=== PATIENT | female | born 1975 | race Two or more races ===

== ENCOUNTER 2017-01-07 13:55 | Emergency (ER) | payer BC ==
[2017-01-07 14:09] VITALS: BP 134/73
--- NOTE | 2017-01-07 16:34 | UC ---
Skin Complaint HPI - HPI Summary HPI Summary: Left MAL just below bra line pat has a tender erythemic abscess for 5 days - History of Current Complaint Chief Complaint: UCSkin Time Seen by Provider: 01/07/17 16:27 Stated Complaint: LUMP UNDER ARM Hx Obtained From: Patient Hx Last Menstrual Period: 12/31/16 ?: No Onset/Duration: Sudden Onset, Lasting Days - 5, Still Present Timing: Constant Onset Severity: Mild Current Severity: Moderate Pain Intensity: 3 Location: Discrete Character: Pain, Redness, Raised Aggravating: Nothing Alleviating: Nothing Associated Signs & Symptoms: Positive: Negative - Allergy/Home Medications Allergies/Adverse Reactions: Allergies Allergy/AdvReac Type Severity Reaction Status Date / Time No Known Allergies Allergy Verified 05/09/12 11:13 Review of Systems Constitutional: Negative Skin: Other - Abscess MAL left side of chest wall Eyes: Negative ENT: Negative Respiratory: Negative Cardiovascular: Negative Gastrointestinal: Negative Genitourinary: Negative Motor: Negative Neurovascular: Negative Musculoskeletal: Negative Neurological: Negative Psychological: Negative All Other Systems Reviewed And Are Negative: Yes PMH/Surg Hx/FS Hx/Imm Hx Previously Healthy: Yes - Surgical History Surgical History: None - Family History Known Family History: Positive: Unknown - Social History Occupation: Unemployed Lives: With Family Alcohol Use: None Substance Use Type: None Smoking Status (MU): Former Smoker Physical Exam Triage Information Reviewed: Yes Appearance: Well-Appearing, No Pain Distress, Well-Nourished Vital Signs: Initial Vital Signs Temp 98.6 F 01/07/17 14:05 Pulse 70 01/07/17 14:05 Resp 17 01/07/17 14:05 BP 134/73 01/07/17 14:05 Pulse Ox 99 01/07/17 14:05 Vital Signs Reviewed: Yes Eye Exam: Normal Eyes: Positive: Conjunctiva Clear ENT Exam: Normal ENT: Positive: Normal ENT inspection, Hearing grossly normal. Negative: Nasal congestion, Nasal drainage, Trismus, Muffled/hoarse voice Dental Exam: Normal Neck exam: Normal Neck: Positive: Supple, Nontender, No Lymphadenopathy Respiratory Exam: Normal Respiratory: Positive: Chest non-tender, No respiratory distress, No accessory muscle use Cardiovascular Exam: Normal Cardiovascular: Positive: RRR, Pulses Normal, Brisk Capillary Refill Musculoskeletal Exam: Normal Musculoskeletal: Positive: Strength Intact, ROM Intact Neurological Exam: Normal Neurological: Positive: Alert Psychological Exam: Normal Skin: Positive: Other - Abscess2.5 x1 cm---firm no fluctulance Course/Dx - Course Course Of Treatment: warm compress,bactrim retun when abscess softens for I&D, follow with pcp - Differential Diagnoses - Skin Complaint Differential Diagnoses: Abscess, Cellulitis, Impetigo, Lymphadenitis, Tick Born Illness - Diagnoses Provider Diagnoses: Abscess MAL Left chest wall Discharge - Discharge Plan Condition: Stable Disposition: HOME Prescriptions: Sulfamethox/Trimethoprim DS* [Bactrim DS 800/160 TAB*] 1 tab PO BID #20 tab Patient Education Materials: Abscess (ED), Heat Pack Application (ED), Sulfamethoxazole/Trimethoprim (By mouth) Referrals: [facility] [place] [facility] [Outside] - 5 Days
== END 2017-01-07 16:46 | disposition home or self-care (01) ==
LOC: UCEAST 13:55
DX: L02.213 Cutaneous abscess of chest wall (principal)
CPT/HCPCS: 99212; G0463

== ENCOUNTER 2017-04-11 12:58 | Emergency (ER) | payer BC ==
[2017-04-11] MEDS ORDERED: Ketorolac INJ* 60 MG/2 ML VIAL IM ONE (17:07)
[2017-04-11] MEDS ORDERED: Cyclobenzaprine TAB* 10 MG PO ONE (17:08)
[2017-04-11] MEDS ORDERED: Dexamethasone TAB* 4 MG PO ONE (17:08)
[2017-04-11] MEDS ORDERED: oxyCODONE/Acetamin 5/325 MG* TAB PO ONE (17:22)
--- NOTE | 2017-04-11 17:22 | ED ---
Back Pain - HPI Summary HPI Summary: 41F presents with back spasms for two weeks. She denies any injury. She has a history of such. She denies any fever. She denies any loss of bowel or bladder. She denies any saddle anaesthesia. She denies any pain down leg. She is able to ambulate normally. She tried ibuprofen without relief. She denies any numbness or tingling. - History of Current Complaint Chief Complaint: EDBackInjuryPain Stated Complaint: LOWER BACK PAIN Time Seen by Provider: 04/11/17 16:53 Hx Last Menstrual Period: 12/31/16 Pain Intensity: 7 - Allergies/Home Medications Allergies/Adverse Reactions: Allergies Allergy/AdvReac Type Severity Reaction Status Date / Time No Known Allergies Allergy Verified 05/09/12 11:13 PMH/Surg Hx/FS Hx/Imm Hx Cardiovascular History: Denies: Hx Aneurysm, Hx Angina, Hx Angioplasty, Hx Atrial Fibrillation, Hx Auto Implanted Cardiovert Defib, Hx Cardiac Arrest, Hx Cardiomegaly, Hx Congenital Heart Disease, Hx Congestive Heart Failure, Hx Coronary Artery Disease, Hx Deep Vein Thrombosis, Hx Embolism, Hx Hypercholesterolemia, Hx Hypotension, Hx Hypertension, Hx Myocardial Infarction, Hx Pacemaker/ICD, Hx Peripheral Vascular Disease, Hx Rheumatic Fever, Hx Syncope, Hx Valvular Heart Disease, Other Cardiovascular Problems/Disorders Respiratory History: Denies: Hx Asthma, Hx Bronchopulmonary Dysplasia, Hx Chronic Bronchitis, Hx Chronic Obstructive Pulmonary Disease (COPD), Hx Cystic Fibrosis, Hx Lung Cancer , Hx Pleural Effusion, Hx Pneumonia, Hx Pulmonary Edema, Hx Pulmonary Embolism, Hx Seasonal Allergies, Hx Sleep Apnea, Other Respiratory Problems/Disorders GI History: Denies: Hx Cirrhosis, Hx Crohn's Disease, Hx Diverticulosis, Hx Gall Bladder Disease, Hx Gastroesophageal Reflux Disease, Hx Gastrointestinal Bleed, Hx Hiatal Hernia, Hx Irritable Bowel, Hx Jaundice, Hx Obstructive Bowel, Hx Ileostomy, Hx Pyloric Stenosis, Hx Ulcer, Hx Urosepsis, Other GI Disorders Neurological History: Denies: Hx CVA, Hx Dementia, Hx Developmental Delay, Hx Headaches, Hx Migraine, Hx Nerve Disease, Hx Peripheral Neuropathy, Hx Seizures, Hx Spinal Cord Injury, Hx Transient Ischemic Attacks (TIA), Other Neuro Impairments/ Disorders Psychiatric History: Denies: Hx Anxiety, Hx Attention Deficit Hyperactivity Disorder, Hx Autism, Hx Eating Disorder, Hx Oppositional Transfer Disorder, Hx Depression, Hx Panic Disorder, Hx Post Traumatic Stress Disorder, Hx Inpatient Treatment, Hx Community Mental Health Tx, Hx Schizophrenia, Hx Bipolar Disorder, Hx Suicide Attempt, Hx of Violent Episodes Against Others, Hx Substance Abuse, Other Psychiatric Issues/Disorders Infectious Disease History: No Infectious Disease History: Denies: Hx Clostridium Difficile, Hx Hepatitis, Hx Human Immunodeficiency Virus (HIV), Hx of Known/Suspected MRSA, Hx Shingles, Hx Tuberculosis, Hx Known/ Suspected VRE, Hx Known/Suspected VRSA, History Other Infectious Disease, Traveled Outside the [place] in Last 30 Days - Family History Known Family History: Positive: Unknown - Social History Alcohol Use: None Substance Use Type: Reports: None Smoking Status (MU): Former Smoker Review of Systems Negative: Fever Negative: Chest Pain Negative: Shortness Of Breath Positive: Myalgia - back pain All Other Systems Reviewed And Are Negative: Yes Physical Exam Triage Information Reviewed: Yes Vital Signs On Initial Exam: Initial Vitals Temp Pulse Resp BP Pulse Ox 97.8 F 55 20 135/30 100 04/11/17 13:01 04/11/17 13:01 04/11/17 13:01 04/11/17 13:01 04/11/17 13:01 Vital Signs Reviewed: Yes Appearance: Positive: Well-Appearing Skin: Positive: Warm, Dry Head/Face: Positive: Normal Head/Face Inspection Eyes: Positive: Normal, Conjunctiva Clear Respiratory/Lung Sounds: Positive: Clear to Auscultation, Breath Sounds Present Cardiovascular: Positive: Normal, RRR Musculoskeletal: Positive: Strength/ROM Intact - back, Other - no midline tenderness. tender across lower back. neg SLR, good pulses, Neurological: Positive: Reflexes Intact - patella Psychiatric: Positive: Normal - [place] Coma Scale Coma Scale Total: 15 Diagnostics - Vital Signs Vital Signs Temp Pulse Resp BP Pulse Ox 04/11/17 15:25 98.3 F 71 26 136/63 100 04/11/17 13:01 97.8 F 55 20 135/30 100 - Laboratory Lab Statement: Any lab studies that have been ordered have been reviewed, and results considered in the medical decision making process. Back Pain Course/Dx - Course Course Of Treatment: 41F presents with back spasms for two weeks. She denies any injury. She has a history of such. She denies any fever. She denies any loss of bowel or bladder. She denies any saddle anaesthesia. She denies any pain down leg. She is able to ambulate normally. She tried ibuprofen without relief. She denies any numbness or tingling. on exam tender across lower back. no midline tenderness. neg SLR. will treat with flexeril and steriod. patient understand and agrees with plan. - Diagnoses Differential Diagnosis/HQI/PQRI: Positive: Herniated Disc, Strain, Sprain Provider Diagnoses: Back pain Discharge - Discharge Plan Condition: Good Disposition: HOME Prescriptions: Cyclobenzaprine TAB* [Flexeril 10 MG TAB*] 10 mg PO TID PRN #15 tab PRN Reason: Pain Methylprednisolone [Medrol Dosepak 4 MG*] 4 mg PO .SEE DEONTE INSTRUCTION #1 packet Patient Education Materials: Back Pain (ED) Referrals: No Primary Care Phys,NOPCP [Primary Care Provider] - [facility] [place] [facility] [place]] Additional Instructions: Follow directions on package for Medrol pack Take muscle relaxers three times a day Use ibuprofen or Tylenol for pain every 6 hours ice/heat area, move as much as possible Follow up with primary within 5 days Return to ED if develop any new or worsening symptoms
[2017-04-11 17:35] VITALS: BP 129/74
== END 2017-04-11 17:36 | disposition home or self-care (01) ==
LOC: ED 12:58
DX: M54.9 Dorsalgia, unspecified (principal)
CPT/HCPCS: 99282; A9270-GY; J1885; J8540

== ENCOUNTER 2017-11-17 10:43 | Emergency (ER) | payer BC ==
[2017-11-17 10:53] VITALS: BP 116/58
== END 2017-11-17 11:54 | disposition left against medical advice (07) ==
LOC: UCEAST 10:43
DX: R22.2 Localized swelling, mass and lump, trunk (principal); Z53.21 Procedure and treatment not carried out due to patient leaving prior to being seen by health care provider

== ENCOUNTER 2017-11-17 13:46 | Emergency (ER) | payer BC ==
[2017-11-17 14:13] VITALS: BP 132/80
--- NOTE | 2017-11-17 14:24 | UC ---
Skin Complaint HPI - HPI Summary HPI Summary: patient has an abscess on the left side of her labia, the cyst began draining a few days ago but still has a firmpea size lump--no fevers or streaking continues with small amount of purulent drainage - History of Current Complaint Chief Complaint: UCSkin Time Seen by Provider: 11/17/17 14:15 Stated Complaint: PERSONAL Hx Obtained From: Patient Hx Last Menstrual Period: 10/19/17 ?: No Onset/Duration: Sudden Onset, Still Present Pain Intensity: 10 Pain Scale Used: 0-10 Numeric Location: Discrete Character: Redness, Raised, Painful Aggravating Factor(s): Nothing Alleviating Factor(s): Nothing Associated Signs & Symptoms: Positive: Negative - Allergy/Home Medications Allergies/Adverse Reactions: Allergies Allergy/AdvReac Type Severity Reaction Status Date / Time No Known Allergies Allergy Verified 11/17/17 10:53 Review of Systems Constitutional: Negative Skin: Other - left labial abscess, painful and draining Eyes: Negative ENT: Negative Respiratory: Negative Cardiovascular: Negative Gastrointestinal: Negative Genitourinary: Negative Motor: Negative Neurovascular: Negative Musculoskeletal: Negative Neurological: Negative Psychological: Negative Is Patient Immunocompromised?: No All Other Systems Reviewed And Are Negative: Yes PMH/Surg Hx/FS Hx/Imm Hx Previously Healthy: Yes - Surgical History Surgical History: None Surgery Procedure, Year, and Place: tubal ligation - Family History Known Family History: Positive: Unknown - Social History Occupation: Employed Full-time Lives: With Family Alcohol Use: None Substance Use Type: None Smoking Status (MU): Former Smoker Physical Exam Triage Information Reviewed: Yes Appearance: Well-Appearing, No Pain Distress, Well-Nourished Vital Signs: Initial Vital Signs Temp 97.8 F 11/17/17 14:09 Pulse 80 11/17/17 14:09 Resp 18 11/17/17 14:09 BP 132/80 11/17/17 14:09 Pulse Ox 98 11/17/17 14:09 Vital Signs Reviewed: Yes Eye Exam: Normal Eyes: Positive: Conjunctiva Clear ENT Exam: Normal ENT: Positive: Normal ENT inspection, Hearing grossly normal. Negative: Trismus , Muffled voice, Hoarse voice Dental Exam: Normal Neck exam: Normal Neck: Positive: Supple, Nontender Respiratory Exam: Normal Respiratory: Positive: Chest non-tender, No respiratory distress, No accessory muscle use Cardiovascular Exam: Normal Cardiovascular: Positive: RRR, Pulses Normal, Brisk Capillary Refill Musculoskeletal Exam: Normal Musculoskeletal: Positive: Strength Intact, ROM Intact, No Edema Neurological Exam: Normal Neurological: Positive: Alert, Muscle Tone Normal Psychological Exam: Normal Skin Exam: Other Skin: Positive: Other - draining labial abscess approx 5 mm of firm abscess remains Course/Dx - Course Course Of Treatment: wound culture obtained, warm compress, Bactrim follow with pcp prn - Diagnoses Provider Diagnoses: left labial abscess Discharge - Sign-Out/Discharge Documenting (check all that apply): Discharge/Admit/Transfer - Discharge Plan Condition: Stable Disposition: HOME Prescriptions: Sulfamethox/Trimethoprim DS* [Bactrim DS 800/160 TAB*] 1 tab PO BID #20 tab Patient Education Materials: Abscess (ED), Warm Compress or Soak (ED) Referrals: [facility] [place] [facility] [Outside] - 5 Days - Billing Disposition and Condition Condition: STABLE Disposition: Home
--- NOTE | 2017-11-20 19:51 | UC ---
- Progress Note Progress Note: 11/20/2017 Genital culture : normal jessi No change Nikole Noriega PA-C Discharge - Sign-Out/Discharge Documenting (check all that apply): Discharge/Admit/Transfer - D/c home - Discharge Plan Condition: Stable Disposition: HOME Prescriptions: Sulfamethox/Trimethoprim DS* [Bactrim DS 800/160 TAB*] 1 tab PO BID #20 tab Patient Education Materials: Abscess (ED), Warm Compress or Soak (ED) Referrals: [facility] [place] [facility] [Outside] - 5 Days - Billing Disposition and Condition Condition: STABLE Disposition: Home
== END 2017-11-17 14:40 | disposition home or self-care (01) ==
LOC: UCEAST 13:46
DX: N76.4 Abscess of vulva (principal); Z87.891 Personal history of nicotine dependence
CPT/HCPCS: 87070; 87077; 99212; G0463

== ENCOUNTER 2019-03-29 15:23 | Emergency (ER) | payer BC ==
--- NOTE | 2019-03-29 16:04 | ED ---
Throat Pain/Nasal Congestion - HPI Summary HPI Summary: Pt is a 43 y/o F presenting to the ED for left ear pain that began 2 weeks ago and has worsened since initial onset. Pt states that the ear feels wet and the pain radiates to the left side of the head. Pt states she hears a popping sound that comes and goes and describes the pain as pressure. About 4 days ago, pt saw blood on a cotton swab while cleaning her ear. Pt denies fever, sore throat, cough, rhinorrhea, vomiting, nausea, or diarrhea. Pt states that she placed ear drops in her ear after which pt felt a burning sensation in her ear. Pt denies a PMHx of DM or HTN. Pt admits a PSHx of tubal ligation. Pt denies alcohol, tobacco, or drug use. Pt takes allergy medications daily. Pts PCP is Dr. Valero. Pt is a salon receptionist. - History of Current Complaint Chief Complaint: EDEarPain Time Seen by Provider: 03/29/19 15:59 Hx Obtained From: Patient Onset/Duration: Sudden Onset, Lasting Weeks - 2 weeks, Still Present Severity: Moderate Associated Signs And Symptoms: Positive: Negative Cough: None - Allergies/Home Medications Allergies/Adverse Reactions: Allergies Allergy/AdvReac Type Severity Reaction Status Date / Time No Known Allergies Allergy Verified 03/29/19 15:28 PMH/Surg Hx/FS Hx/Imm Hx Previously Healthy: Yes Cardiovascular History: Denies: Hx Aneurysm, Hx Angina, Hx Angioplasty, Hx Atrial Fibrillation, Hx Auto Implanted Cardiovert Defib, Hx Cardiac Arrest, Hx Cardiomegaly, Hx Congenital Heart Disease, Hx Congestive Heart Failure, Hx Coronary Artery Disease, Hx Deep Vein Thrombosis, Hx Embolism, Hx Hypercholesterolemia, Hx Hypotension, Hx Hypertension, Hx Myocardial Infarction, Hx Pacemaker/ICD, Hx Peripheral Vascular Disease, Hx Rheumatic Fever, Hx Syncope, Hx Valvular Heart Disease, Other Cardiovascular Problems/Disorders Respiratory History: Denies: Hx Asthma, Hx Bronchopulmonary Dysplasia, Hx Chronic Bronchitis, Hx Chronic Obstructive Pulmonary Disease (COPD), Hx Cystic Fibrosis, Hx Lung Cancer , Hx Pleural Effusion, Hx Pneumonia, Hx Pulmonary Edema, Hx Pulmonary Embolism, Hx Seasonal Allergies, Hx Sleep Apnea, Other Respiratory Problems/Disorders GI History: Denies: Hx Cirrhosis, Hx Crohn's Disease, Hx Diverticulosis, Hx Gall Bladder Disease, Hx Gastroesophageal Reflux Disease, Hx Gastrointestinal Bleed, Hx Hiatal Hernia, Hx Irritable Bowel, Hx Jaundice, Hx Obstructive Bowel, Hx Ileostomy, Hx Pyloric Stenosis, Hx Ulcer, Hx Urosepsis, Other GI Disorders Neurological History: Denies: Hx CVA, Hx Dementia, Hx Developmental Delay, Hx Headaches, Hx Migraine, Hx Nerve Disease, Hx Peripheral Neuropathy, Hx Seizures, Hx Spinal Cord Injury, Hx Transient Ischemic Attacks (TIA), Other Neuro Impairments/ Disorders Psychiatric History: Denies: Hx Anxiety, Hx Attention Deficit Hyperactivity Disorder, Hx Autism, Hx Eating Disorder, Hx Oppositional [place] Disorder, Hx Depression, Hx Panic Disorder, Hx Post Traumatic Stress Disorder, Hx Inpatient Treatment, Hx Community Mental Health Tx, Hx Schizophrenia, Hx Bipolar Disorder, Hx Suicide Attempt, Hx of Violent Episodes Against Others, Hx Substance Abuse, Other Psychiatric Issues/Disorders - Surgical History Surgery Procedure, Year, and Place: tubal ligation Infectious Disease History: No Infectious Disease History: Denies: Hx Clostridium Difficile, Hx Hepatitis, Hx Human Immunodeficiency Virus (HIV), Hx of Known/Suspected MRSA, Hx Shingles, Hx Tuberculosis, Hx Known/ Suspected VRE, Hx Known/Suspected VRSA, History Other Infectious Disease, Traveled Outside the [place] in Last 30 Days - Family History Known Family History: Positive: Unknown - Social History Alcohol Use: None Substance Use Type: Reports: None Smoking Status (MU): Former Smoker Review of Systems Negative: Fever Positive: Ear Ache - Positive left ear pain, Other - Positive blood in the ear after cleaning with cotton swab. Negative: Sore Throat, Nasal Discharge - Rhinorrhea Negative: Cough Negative: Vomiting, Diarrhea, Nausea Positive: Myalgia - Left side of head that radiates from left ear All Other Systems Reviewed And Are Negative: Yes Physical Exam - Summary Physical Exam Summary: Constitutional: Well-developed, Well-nourished, Alert. (-) Distressed Skin: Warm, Dry HENT: Normocephalic; Atraumatic. Left ear with external erythema, TM appears normal, pain with manipulation, no mastoid tenderness. Eyes: Conjunctiva normal Neck: Musculoskeletal ROM normal neck. (-) JVD, (-) Stridor, (-) Tracheal deviation Cardio: Rhythm regular, rate normal, Heart sounds normal; Intact distal pulses; Radial pulses are 2+ and symmetric. (-) Murmur Pulmonary/Chest wall: Effort normal. (-) Respiratory distress, (-) Wheezes, (-) Rales Abd: Soft, (-) tenderness, (-) Distension, (-) Guarding, (-) Rebound Musculoskeletal: (-) Edema Lymph: (-) Cervical adenopathy Neuro: Alert, Oriented x3 Psych: Mood and affect Normal Triage Information Reviewed: No Vital Signs On Initial Exam: Initial Vitals Temp Pulse Resp BP Pulse Ox 97.3 F 76 16 137/78 98 03/29/19 15:25 03/29/19 15:25 03/29/19 15:25 03/29/19 15:25 03/29/19 15:25 Vital Signs Reviewed: No Procedures - Sedation Patient Received Moderate/Deep Sedation with Procedure: No Diagnostics - Vital Signs Vital Signs Temp Pulse Resp BP Pulse Ox 03/29/19 15:25 97.3 F 76 16 137/78 98 - Laboratory Lab Statement: Any lab studies that have been ordered have been reviewed, and results considered in the medical decision making process. EENT Course/Dx - Course Course Of Treatment: Patient is here with left ear pain and discharge. Patient has evidence of otitis externa on exam. Patient had evidence of mastoiditis or malignant otitis externa. Patient was started on Cortisporin otic suspension - Diagnoses Provider Diagnoses: Otitis externa Discharge ED - Sign-Out/Discharge Documenting (check all that apply): Patient Departure - Discharge - Discharge Plan Condition: Stable Disposition: HOME Prescriptions: Neomyc/Colist/Hydrocort/Thonzn [Cortisporin-Tc Ear Suspension] 10 ml OT TID 7 Days #1 drops.susp Patient Education Materials: Otitis Externa (ED) Referrals: Nicole Valero MD [Primary Care Provider] - Additional Instructions: Follow up with Dr. Valero next week. Take medications as directed. Return to the ED for any new or worsening symptoms. - Billing Disposition and Condition Condition: STABLE Disposition: Home - Attestation Statements Document Initiated by Scribe: Yes Documenting Scribe: Gayle Mena Provider For Whom Evelioibromulo is Documenting (Include Credential): Kobi Quigley MD Scribe Attestation: Gayle Taylor, scribed for Kobi Quigley MD on 03/29/19 at 2026. Scribe Documentation Reviewed: Yes Provider Attestation: The documentation as recorded by the scribeGayle accurately reflects the service I personally performed and the decisions made by me, Kobi Quigley MD Status of [place] Document: Viewed
[2019-03-29 16:42] VITALS: BP 135/81
== END 2019-03-29 16:41 | disposition home or self-care (01) ==
LOC: ED 15:23
DX: H60.92 Unspecified otitis externa, left ear (principal); Z87.891 Personal history of nicotine dependence
CPT/HCPCS: 99282

== ENCOUNTER 2019-05-16 05:36 | Observation (INO) | payer BC ==
[~2019-05-16 05:36] MED LIST: Buffered Lidocaine 1% SYRIN* 1 ML/SYRINGE INTRADERM ONE
[2019-05-16] MEDS ORDERED: Lactated Ringers 1000 ML Bag* 1,000 ML IV SCH ×2 (06:00→11:00)
[2019-05-16] MEDS ORDERED: ceFAZolin 2 GM PREMIX in ORs 2 GM/50 ML BAG ONE (06:04)
[2019-05-16] MEDS ORDERED: Dexamethasone IV* 4 MG/ML 1 ML (4 MG) ONE (07:07)
[2019-05-16] MEDS ORDERED: Midazolam* 1 MG/ML 5 ML VIAL (5 MG) ONE (07:07)
[2019-05-16] MEDS ORDERED: Propofol* 10 MG/ML 20 ML BTL ONE (07:07)
[2019-05-16] MEDS ORDERED: fentaNYL* 50 MCG/ML 2 ML VIAL (100 MCG VIAL) ONE ×3 (07:07→08:22)
[2019-05-16] MEDS ORDERED: Rocuronium* 10 MG/ML VIAL ONE ×2 (07:07→09:07)
[2019-05-16] MEDS ORDERED: Bupivacaine 0.5% W/EPI SDV* 10 ML VIAL INJ ONE (07:19)
[2019-05-16] MEDS ORDERED: Scopolamine 1.5 mg* PATCH TRANSDERM PRN (08:18)
[2019-05-16] MEDS ORDERED: HYDROmorphone INJ1* 1 MG/ML SYRINGE IV PRN (08:18)
[2019-05-16] MEDS ORDERED: oxyCODONE/Acetamin 5/325 MG* TAB PO PRN (08:18)
[2019-05-16] MEDS ORDERED: Naloxone* 0.4 MG/ML 1 ML VIAL IV PRN (08:18)
[2019-05-16] MEDS ORDERED: DiMENhydriNATE IV* 50 MG/ML VIAL IV PUSH PRN (08:18)
[2019-05-16] MEDS ORDERED: fentaNYL* 50 MCG/ML 2 ML VIAL (100 MCG VIAL) IV PRN (08:18)
[2019-05-16] MEDS ORDERED: Ondansetron INJ* 2 MG/ML VIAL IV PRN ×2 (08:18→10:05)
[2019-05-16] MEDS ORDERED: Ondansetron INJ* 2 MG/ML VIAL ONE (09:43)
[2019-05-16] MEDS ORDERED: Neostigmine Methylsulfate* 3 MG/3 ML SYRINGE ONE (09:44)
[2019-05-16] MEDS ORDERED: Ketorolac INJ* 30 MG/ML 1 ML VIAL ONE (09:53)
[2019-05-16] MEDS ORDERED: Ibuprofen TAB* 600 MG PO PRN (10:05)
[2019-05-16] MEDS: oxyCODONE/Acetamin 5/325 MG* TAB PO PRN ×3 (13:29→22:10)
[2019-05-17] MEDS: oxyCODONE/Acetamin 5/325 MG* TAB PO PRN ×2 (03:43→08:34)
[2019-05-17 06:41] LABS: ABS Eosinophils 0.1 10^3/ul (0-0.6); ABS Lymphocytes 1.9 10^3/ul (1.0-4.8); ABS Neutrophils 9.1 10^3/ul (1.5-7.7); Eosinophil % 0.7 %; Hematocrit 36 % (35-47); Hemoglobin 11.9 g/dL (12.0-16.0); Lymphocyte % 15.7 %; Mean Corpuscular HGB Conc 33 g/dL (31-36); Mean Corpuscular Hemoglobin 28 pg (27-31); Mean Corpuscular Volume 83 fL (80-97); Mean Platelet Volume 7.9 fL (7.4-10.4); Platelet Count 276 10^3/uL (150-450); Red Blood Count 4.31 10^6 /uL (3.70-4.87); Red Cell Distribution Width 13 % (10-15); White Blood Count 12.2 10^3/uL (3.5-10.8)
[2019-05-17 07:36] VITALS: BP 123/60
[2019-05-17] MEDS ORDERED: Docusate CAP* 100 MG PO PRN (08:25)
[2019-05-17] MEDS ORDERED: Simethicone TAB* 80 MG TAB.CHEW PO PRN (08:26)
[2019-05-17] MEDS ORDERED: Bisacodyl EC TAB* 5 MG PO ONE (08:27)
--- NOTE | 2019-05-17 08:40 | SURGPN ---
Subjective - Introduction -: 43 y/o lady with menorrhagia and severe dysmenorrhea Admitted on: [05/16/19] Patient's surgical date: 05/16/19 Procedure completed: Laparoscopic supracervical hysterectomy S. Patient is tolerating regular diet, passing flatus, voiding without difficulty and ambulating. She is tolerating pain well with PO meds. Denies Chest pain, SOB, N/V. O. Vital Signs Temp Pulse Resp BP Pulse Ox 97.8 F 66 18 123/60 98 05/17/19 07:35 05/17/19 07:35 05/17/19 08:34 05/17/19 07:35 05/17/19 07:35 Laboratory Results - last 24 hr 05/17/19 05:35 WBC 12.2 H RBC 4.31 Hgb 11.9 L Hct 36 MCV 83 MCH 28 MCHC 33 RDW 13 Plt Count 276 MPV 7.9 Neut % (Auto) 75.0 Lymph % (Auto) 15.7 Rogers % (Auto) 8.2 Eos % (Auto) 0.7 Baso % (Auto) 0.4 Absolute Neuts (auto) 9.1 H Absolute Lymphs (auto) 1.9 Absolute Monos (auto) 1.0 H Absolute Eos (auto) 0.1 Absolute Basos (auto) 0.0 Absolute Nucleated RBC 0.0 Nucleated RBC % 0.0 PE. Lungs CTA b/l CV. RRR Abd. Soft, normal bowel sounds, incisions clean, dry, intact with no discharge, erythema or induration. - Medications -: Active Medications Generic Name Dose Route Start Last Admin Trade Name Freq PRN Reason Stop Dose Admin Docusate Sodium 100 mg 05/17/19 08:25 Colace Cap* PO BID PRN CONSTIPATION Lactated Ringer's 1,000 mls @ 125 mls/hr 05/16/19 11:00 Lactated Ringers 1000 Ml Bag* IV PER RATE MANOLO Ibuprofen 600 mg 05/16/19 10:05 Motrin Tab* PO Q6H PRN PAIN - MILD Ondansetron HCl 4 mg 05/16/19 10:05 Zofran Inj* IV Q6H PRN NAUSEA Oxycodone/Acetaminophen 2 tab 05/16/19 10:05 05/17/19 03:43 Percocet 5/325 Tab* PO 2 tab Q4H PRN Administration PAIN - MODERATE TO SEVERE Simethicone 80 mg 05/17/19 08:26 Mylicon Tab* PO Q6H PRN CONSTIPATION - Comments Comments: I/P POD #1 s/p laparoscopic supracervical hysterectomy, stable for discharge home. Discharge instructions reviewed with patient, she has f/u instructions and appointment in 1 week at my office. Objective - Intake and Output -: Intake & Output 05/15/19 05/16/19 05/17/19 05/18/19 06:59 06:59 06:59 06:59 Intake Total 4000 Output Total 2350 300 Balance 1650 -300 Weight 188 lb Intake: IV Fluids 2400 LR 2400 Oral 1600 Output: Urine 1450 300 [place] 900 ADLs: Meal Record Start: 05/16/19 11: 19 Freq: Status: Active Protocol: Created 05/16/19 11:19 System (Rec: 05/16/19 11:19 [id number]) Intake and Output Start: 05/16/19 11: 19 Freq: DAILY@0600,1400,2200 Status: Active Protocol: Created 05/16/19 11:19 System (Rec: 05/16/19 11:19 System [email or web address]) Document 05/16/19 13:55 [id number] (Rec: 05/16/19 13:55 [id number]) Document 05/16/19 17:36 [id number] (Rec: 05/16/19 17:36 [id number] [id number]) Document 05/16/19 21:19 [id number] (Rec: 05/16/19 21:19 [id number] [id number]) Document 05/16/19 22:12 [id number] (Rec: 05/16/19 22:12 [id number] [id number]) Document 05/17/19 03:43 [id number] (Rec: 05/17/19 03:44 [id number] [id number]) Document 05/17/19 06:30 [id number] (Rec: 05/17/19 06:30 [id number] [id number]) Document 05/17/19 08:29 [id number] (Rec: 05/17/19 08:29 [id number] [facility]-4)
--- NOTE | 2019-05-19 01:59 | DS ---
DISCHARGE SUMMARY: DATE OF ADMISSION: 05/16/19 DATE OF DISCHARGE: 05/17/19 DIAGNOSES ON ADMISSION: Menorrhagia, secondary anemia, and severe dysmenorrhea. PROCEDURE: On 05/16/19, laparoscopic supracervical hysterectomy. SUMMARY: The patient on the day of admission underwent surgery, which was uncomplicated. She was tr ansferred from the operating room to the recovery room area and then to the surgical stay unit floor where she remained on observation over a 24-hour period. On postop day #1, the patient's vital signs were stable and she was afebrile. She had a normal complete blood cell count and was tolerating reg ular diet, ambulating and voiding without difficulty, and her pain was well controlled with p.o. medi cations. She therefore met criteria for discharge on 05/17/19 with instructions to follow up at [facility] ice 1 week after discharge. There were no studies pending at the time of discharge. [id number]/[facility] #: [id number]
[2019-05-19] MEDS ORDERED: Scopolamine PATCH Remove* 1 NOTE MISC PATCH OFF ONE (08:19)
--- NOTE | 2019-05-24 10:31 | OP ---
OPERATIVE REPORT: DATE OF OPERATION: 05/16/19 DATE OF : 73 SURGEON: Christiano Alfaro MD TAX SPECIALIST: Dr. Barker. ANESTHESIA: General anesthetic with endotracheal intubation. PRE-OP DIAGNOSIS: Abnormal uterine bleeding and severe dysmenorrhea. POST-OP DIAGNOSIS: Abnormal uterine bleeding and severe dysmenorrhea. OPERATIVE PROCEDURE: Laparoscopic supracervical hysterectomy. ESTIMATED BLOOD LOSS: Less than 10 cc. SPECIMENS: Sent to Pathology was a morcellated uterus. FLUIDS: The patient received 2400 cc of IV crystalloid fluid. URINE OUTPUT: 350 cc of clear urine. FINDINGS: Laparoscopically the patient was noted to have what appeared to be a normal uterus with a subserosal myoma, normal ovaries bilaterally, and evidence of prior tubal ligation. There was normal bowel and bladder and there were no complications during this procedure. DESCRIPTION OF PROCEDURE: The patient was taken to the operating room where she was identified. She was placed on operating table, where a general anesthetic with endotracheal intubation was obtained without difficulty. She was then placed in dorsal lithotomy position. Prepped and draped in a estrada l sterile fashion. Attention was then brought onto the patient's perineum where the bladder was adela terized with a Pittman catheter and drained of urine. A speculum was inserted into the patient's vagin a, the cervix was identified, grasped with single-tooth tenaculum. Into the cervix, a ClearView uter ine manipulator was introduced. The balloon and the manipulator was insufflated with 3 cc of saline and a speculum and single-tooth tenaculum were then removed. Attention was then brought onto the pat ient's abdomen where an infraumbilical skin incision apparently was made with a knife and tracked usi ng the underlying layer of fascia. The fascia was then grasped with Florin clamps brought up to the incision and incised vertically with the knife entry into the patient's abdomen through the peritoneu m, was then confirmed using a Nyla clamp. The Florin clamps on the fascia were then replaced with 0 Polysorb suture and the fascial incision in the umbilicus was extended superiorly and inferiorly sha rply to about 4 cm. Through this incision, a GelPort single site operative port was introduced throu gh the port. The patient's abdomen was insufflated with CO2 gas and the trocar in the port with the laparoscope was introduced and a 30 degree laparoscope was then introduced into the patient's abdomen . The patient was then placed in Trendelenburg position and 2 other trocar sites were introduced at the right and left upper quadrant of the patient's abdomen under direct visualization. We then appre ciated to mobilize the bowel away from the pelvis and then look with a laparoscope revealed the findi ngs as noted above. At this point, we then proceeded with a hysterectomy. The round ligaments were g rasped bilaterally with the LigaSure clamp. LigaSure was then turned on and round ligaments were the n coagulated and transected bilaterally. The utero-ovarian ligaments were also grasped with the Liga Sure, coagulated and transected. A window in the anterior leaf of the broad ligament was made with a LigaSure, it was then extended inferiorly using sharp and blunt dissection. A bladder flap was then created and the bladder was then mobilized away from the lower uterine segment using a LigaSure blun t and sharp dissection. The uterine vessels were then identified bilaterally, they were grasped with a LigaSure and the lower uterine segment laterally and also at the cervical uterine junction, they w ere coagulated with LigaSure and transected. The uterus was then noted to be pale from lack of blood supply. At this point, we introduced a SupraLoop. The SupraLoop was then wrapped around the milaen t's cervix at the cervical uterine junction. It was placed at a setting of 110 and the uterus was then decapitated from the cervix. The uterus was then mobilized away from the cervix. The cerv ix was noted to be hemostatic. We removed SupraLoop from the patient's abdomen. The uterus was then placed in an Endobag that was introduced through the umbilicus. The Endobag was then brought up to the patient's umbilical incision and the uterus was then removed using morcellation inside the bag. Once the specimen was removed through morcellation through the umbilicus and sent to Pathology, the b ag was removed and it was noted to be intact. We then replaced the GelPort at the umbilicus. The ab domen was insufflated with CO2 gas again and a second look of the patient's operative site was noted to be completely hemostatic. The operative site was then irrigated with normal saline and the saline was then suctioned. The site was noted to be hemostatic. The trocars in the right and left upper q uadrant were removed under direct visualization and there was no bleeding noted. The umbilical port was removed. The fascia around the umbilicus was closed using 0-Polysorb suture in a running fashion and all the operating skin incisions were closed using 4-0 Monocryl subcuticular stitch. Prior to d ecapitation of the uterus the SupraLoop the uterine manipulator was removed from the uterus. The Fol ey catheter was left in place. The patient tolerated the procedure well. Sponge, lap, needle counts were correct x2. She was then transferred to recovery room area in stable condition. [id number]/[facility] #: [id number]
== END 2019-05-17 10:30 | disposition home or self-care (01) ==
LOC: OR 05:36 → SSU 10:05
PROVIDERS: ADMIT Obstetrics & Gynecology; ATTEND Obstetrics & Gynecology
DX: N93.9 Abnormal uterine and vaginal bleeding, unspecified (principal); D64.9 Anemia, unspecified; K59.00 Constipation, unspecified; Z79.899 Other long term (current) drug therapy
CPT/HCPCS: 36415; 85025; 87641; 88307; A9270-GY; G0378; J0690; J1100; J1885; J2250; J2405; J2704; J2710; J3010

== ENCOUNTER 2019-05-26 11:18 | Emergency (ER) | payer BC ==
[2019-05-26] MEDS ORDERED: guaiFENesin/CODIENE 100mg/10mg 5 ML UDC PO ONE (12:02)
--- NOTE | 2019-05-26 12:05 | ED ---
Throat Pain/Nasal Congestion - HPI Summary HPI Summary: This patient is a 43 year old F presenting to [facility] accompanied by female friend with a chief complaint of blood in spit since this morning 05/26/19. Symptoms aggravated by nothing. Symptoms alleviated by nothing. Patient reports hysterectomy on 05/16/19 and reports a very bad cold before then which alleviated by the 4th. After the surgery she was doing well only requiring 1 Percocet a day. Pt reports 2 days ago her cold got worse with symptoms of chest congestion, runny nose, bad cough, and vomiting up what she eats or clear phlegm (after coughing). Pt reports this morning there was blood in her spit every time she spit. Pt reports due to stress of current symptoms incisions are hurting. Denies taking medication since yesterday but took Dayquil yesterday which did not help. Denies fever and nausea (no time to be nauseous before vomit ). - History of Current Complaint Chief Complaint: EDFluSymptoms Time Seen by Provider: 05/26/19 11:44 Hx Obtained From: Patient Onset/Duration: Lasting Days, Still Present - Allergies/Home Medications Allergies/Adverse Reactions: Allergies Allergy/AdvReac Type Severity Reaction Status Date / Time No Known Allergies Allergy Verified 05/26/19 11:23 Home Medications: Home Medications oxyCODONE/Acetamin 5/325 MG* [Percocet 5/325 TAB*] 1 tab PO Q6H PRN MDD 8 tablets 05/26/19 [History Confirmed 05/26/19] PMH/Surg Hx/FS Hx/Imm Hx Endocrine/Hematology History: Reports: Hx Anemia - UNDER CONTROL W/ IRON PILLS Denies: Hx Bone Marrow Disease, Hx Diabetes, Hx Sickle Cell Disease, Hx Thyroid Disease Cardiovascular History: Denies: Hx Aneurysm, Hx Angina, Hx Angioplasty, Hx Atrial Fibrillation, Hx Auto Implanted Cardiovert Defib, Hx Cardiac Arrest, Hx Cardiomegaly, Hx Congenital Heart Disease, Hx Congestive Heart Failure, Hx Coronary Artery Disease, Hx Deep Vein Thrombosis, Hx Embolism, Hx Hypercholesterolemia, Hx Hypotension, Hx Hypertension, Hx Myocardial Infarction, Hx Pacemaker/ICD, Hx Peripheral Vascular Disease, Hx Rheumatic Fever, Hx Syncope, Hx Valvular Heart Disease, Other Cardiovascular Problems/Disorders Respiratory History: Denies: Hx Asthma, Hx Bronchopulmonary Dysplasia, Hx Chronic Bronchitis, Hx Chronic Obstructive Pulmonary Disease (COPD), Hx Cystic Fibrosis, Hx Lung Cancer , Hx Pleural Effusion, Hx Pneumonia, Hx Pulmonary Edema, Hx Pulmonary Embolism, Hx Seasonal Allergies, Hx Sleep Apnea, Other Respiratory Problems/Disorders GI History: Denies: Hx Cirrhosis, Hx Crohn's Disease, Hx Diverticulosis, Hx Gall Bladder Disease, Hx Gastroesophageal Reflux Disease, Hx Gastrointestinal Bleed, Hx Hiatal Hernia, Hx Irritable Bowel, Hx Jaundice, Hx Obstructive Bowel, Hx Ileostomy, Hx Pyloric Stenosis, Hx Ulcer, Hx Urosepsis, Other GI Disorders History: Denies: Hx Kidney Infection, Hx Kidney Stones, Other Problems/Disorders Musculoskeletal History: Denies: Hx Arthritis, Hx Bursitis, Hx Tendonitis, Other Musculoskeletal History Sensory History: Denies: Hx Cataracts, Hx Contacts or Glasses, Hx Glaucoma, Hx Hearing Aid Opthamlomology History: Denies: Hx Cataracts, Hx Contacts or Glasses, Hx Glaucoma Neurological History: Reports: Hx Migraine - ONLY ON MENSTRUAL CYCLE-NO MEDS Denies: Hx CVA, Hx Dementia, Hx Developmental Delay, Hx Headaches, Hx Nerve Disease, Hx Peripheral Neuropathy, Hx Seizures, Hx Spinal Cord Injury, Hx Transient Ischemic Attacks (TIA), Other Neuro Impairments/Disorders Psychiatric History: Denies: Hx Anxiety, Hx Attention Deficit Hyperactivity Disorder, Hx Autism, Hx Eating Disorder, Hx Oppositional [place] Disorder, Hx Depression, Hx Panic Disorder, Hx Post Traumatic Stress Disorder, Hx Inpatient Treatment, Hx Community Mental Health Tx, Hx Schizophrenia, Hx Bipolar Disorder, Hx Suicide Attempt, Hx of Violent Episodes Against Others, Hx Substance Abuse, Other Psychiatric Issues/Disorders - Cancer History Hx Chemotherapy: No - Surgical History Surgery Procedure, Year, and Place: tubal ligation ' Hx Anesthesia Reactions: No Infectious Disease History: No Infectious Disease History: Denies: Hx Clostridium Difficile, Hx Hepatitis, Hx Human Immunodeficiency Virus (HIV), Hx of Known/Suspected MRSA, Hx Shingles, Hx Tuberculosis, Hx Known/ Suspected VRE, Hx Known/Suspected VRSA, History Other Infectious Disease, Traveled Outside the [place] in Last 30 Days - Family History Known Family History: Positive: Diabetes, Other - CA, blood clots, ovarian cysts - Social History Alcohol Use: None Hx Substance Use: No Substance Use Type: Reports: None Hx Tobacco Use: Yes Smoking Status (MU): Former Smoker Amount Used/How Often: 1-2 PPD X 19 YRS Review of Systems Negative: Fever Positive: Other - blood in spit, runny nose, Positive: Cough, Other - chest congestion Positive: Vomiting - vomiting up what she eats or clear phlegm. Negative: Nausea All Other Systems Reviewed And Are Negative: Yes Physical Exam - Summary Physical Exam Summary: Appearance: The patient is well-nourished in no acute distress and in no acute pain. Skin: The skin is warm and dry, and skin color reflects adequate perfusion. wounds are clean HEENT: The head is normocephalic and atraumatic. The pupils are equal and reactive. The conjunctivae are clear and without drainage. Mouth reveals moist mucous membranes, and the throat is without erythema and exudate. The external ears are intact. The ear canals are patent and without drainage. The tympanic membranes are intact. nasal congestion, pharyngeal erythema Neck: The neck is supple with full range of motion and non-tender. There are no carotid bruits. There is no neck vein distension. Respiratory: Chest is non-tender. crackles at the left base Cardiovascular: Heart is regular rate and rhythm. There is no murmur or rub auscultated. There is no peripheral edema and pulses are symmetrical and equal. Abdomen: mild abdominal tenderness no rebound. There are normal bowel sounds heard in all four quadrants and there is no organomegaly palpated. Musculoskeletal: There is no back tenderness noted. Extremities are non-tender with full range of motion. There is good capillary refill. There is no peripheral edema or calf tenderness elicited. Neurological: Patient is alert and oriented to person, place and time. The patient has symmetrical motor strength in all four extremities. Cranial nerves are grossly intact. Deep tendon reflexes are symmetrical and equal in all four extremities. Psychiatric: The patient has an appropriate affect and does not exhibit any anxiety or depression. Triage Information Reviewed: Yes Vital Signs On Initial Exam: Initial Vitals Temp Pulse Resp BP Pulse Ox 97.7 F 88 16 149/93 98 05/26/19 11:21 05/26/19 11:21 05/26/19 11:21 05/26/19 11:21 05/26/19 11:21 Vital Signs Reviewed: Yes Procedures - Sedation Patient Received Moderate/Deep Sedation with Procedure: No Diagnostics - Vital Signs Vital Signs Temp Pulse Resp BP Pulse Ox 05/26/19 11:21 97.7 F 88 16 149/93 98 - Laboratory Result Diagrams: 05/26/19 12:30 05/26/19 12:30 Lab Statement: Any lab studies that have been ordered have been reviewed, and results considered in the medical decision making process. - Radiology Chest X-Ray Radiology Interpretation Completed By: Radiologist Summary of Radiographic Findings: Per radiologist,. SUSPECTED INFILTRATE AND/ OR PNEUMONIA AT THE RIGHT MIDDLE LOBE. ED physician has reviewed this imaging report. Re-Evaluation - Re-Evaluation First Eval Re-Evaluation Time: 13:09 Comment: ED physician discusses plan of care and discharge with pt. EENT Course/Dx - Course Course Of Treatment: Ms. Contreras at an upper respiratory tract infection that was just about resolved on May 16 when she had surgery involving general anesthesia and orotracheal intubation. A few days ago she started with coughing , congestion and nausea and vomiting. She's not sure she's had fevers. She is not short of breath. She was nontoxic in appearance with stable vitals and chest x-ray revealed likely right middle lobe infiltrate. Labs including influenza swabs were generally unremarkable. I recommend we treat her with cough medication. I gave her guaifenesin with codeine that worked pretty well here in the emergency department and we will continue that. I'm also giving her Levaquin as I'm not sure whether this is a hospital-acquired pneumonia. - Diagnoses Provider Diagnoses: Pneumonia Discharge ED - Sign-Out/Discharge Documenting (check all that apply): Patient Departure - discharge - Discharge Plan Condition: Stable Disposition: HOME Prescriptions: Codeine Phosphate/Guaifenesin [Guaiatussin AC Liquid] 5 ml PO Q4HR #120 ml MDD 30 cc Levofloxacin TAB* [Levaquin TAB*] 750 mg PO DAILY #10 tab Patient Education Materials: Pneumonia (ED) Referrals: Nicole Valero MD [Primary Care Provider] - 3 Days - Billing Disposition and Condition Condition: STABLE Disposition: Home - Attestation Statements Document Initiated by Evelioibe: Yes Documenting Scribe: Eloise Feliz Provider For Whom Soto is Documenting (Include Credential): Dr. Curly Boothe MD Scribe Attestation: Eloise Taylor scribed for Dr. Curly Boothe MD on 05/26/19 at 1509. Scribe Documentation Reviewed: Yes Provider Attestation: The documentation as recorded by the Eloise cooper accurately reflects the service I personally performed and the decisions made by me, Dr. Curly Boothe MD Status of Scribe Document: Viewed
[2019-05-26 12:47] LABS: ABS Basophils 0.1 10^3/ul (0-0.2); ABS Eosinophils 0.3 10^3/ul (0-0.6); ABS Lymphocytes 1.5 10^3/ul (1.0-4.8); ABS Monocytes 0.6 10^3/ul (0-0.8); ABS Neutrophils 6.8 10^3/ul (1.5-7.7); Eosinophil % 3.6 %; Hematocrit 40 % (35-47); Hemoglobin 13.2 g/dL (12.0-16.0); Mean Corpuscular HGB Conc 33 g/dL (31-36); Mean Corpuscular Hemoglobin 28 pg (27-31); Mean Corpuscular Volume 83 fL (80-97); Mean Platelet Volume 7.9 fL (7.4-10.4); Platelet Count 406 10^3/uL (150-450); Red Cell Distribution Width 13 % (10-15); White Blood Count 9.3 10^3/uL (3.5-10.8)
[2019-05-26 12:54] LABS: Albumin 4.1 g/dL (3.2-5.2); Albumin/Globulin Ratio 1.3 (1-3); BUN/Creatinine Ratio 12.2 (8-20); C Reactive Protein 2.6 mg/L (<8.01); Calcium 9.1 mg/dL (8.6-10.3); EGFR African American 91.6 (>60); EGFR Non-African American 75.7 (>60); Globulin 3.2 g/dL (2-4); Potassium 3.8 mmol/L (3.5-5.0); Total Bilirubin 0.3 mg/dL (0.2-1.0); Total Protein 7.3 g/dL (6.4-8.9)
[2019-05-26 13:04] LABS: Influenza A Molecular NEGATIVE (Negative); Influenza B Molecular NEGATIVE (Negative)
[2019-05-26 13:34] VITALS: BP 132/78
== END 2019-05-26 13:36 | disposition home or self-care (01) ==
LOC: ED 11:18
DX: J18.9 Pneumonia, unspecified organism (principal); D64.9 Anemia, unspecified; Z98.51 Tubal ligation status; Z87.891 Personal history of nicotine dependence
CPT/HCPCS: 36415; 71046; 80053; 85025; 86140; 99282; A9270-GY